=== PATIENT | male | born 1950 | race Caucasian/White ===

== ENCOUNTER 2019-02-06 07:05 | Observation (INO) ==
[2019-02-06] MEDS ORDERED: NS 1,000 ML ONE (07:15)
--- NOTE | 2019-02-06 07:21 | PROVIDER DOCUMENTATION ---
HPI-Chest Pain - General Stated Complaint: cp Time Seen by Provider: 02/06/19 07:14 Source: patient Allergies/Adverse Reactions: Patient Allergies Allergy/AdvReac Type Severity Reaction Status Date / Time No Known Allergies Allergy Verified 02/06/19 07:35 Home Medications: Home Medication List Medication Instructions Recorded Confirmed Last Taken Type ATORVAstatin [Lipitor] 20 mg PO QHS 02/06/19 02/06/19 Unknown History Acetaminophen with Codeine 1 ea PO DAILY 02/06/19 02/06/19 Unknown History [Tylenol with Codeine #3] Cyanocobalamin (Vitamin B-12) 5,000 mcg PO DAILY 02/06/19 02/06/19 Unknown History [Vitamin B12] Ezetimibe [Zetia] 10 mg PO DAILY 02/06/19 02/06/19 Unknown History Gabapentin [Neurontin] 300 mg PO TID 02/06/19 02/06/19 Unknown History Levothyroxine [Synthroid] 137 microgm PO DAILY 02/06/19 02/06/19 Unknown History Multivit,Th Iron,Other Min 1 ea PO DAILY 02/06/19 02/06/19 Unknown History [Complete Multivitamin] Potassium Chloride [Klor-Con 10] 10 meq PO DAILY 02/06/19 02/06/19 Unknown History Prednisone 20 mg PO DAILY 02/06/19 02/06/19 Unknown History - History of Present Illness-CP Nature of Presenting Problem: Patient presents via ambulance complaineng of chest pain which started approx. 1 hour ago. He took 2 nitroglycerins at home and had some reilief, but it retur noel so he called 911. the pain is in his left upper chest with radiation to his left arm. He has nausia and diaphoresis. He was given asa in route. the pain is better, but still present 04/05. He has a pacemaker, but denies any vascular disease. his sewing techniques demonstrator is Dr Graham in [place]. He drank all day yesterday. He states he doesn't know how much Location: reports: substernal Chest Pain Radiation: reports: arms, neck, shoulders Quality of Pain: reports: fullness Onset/Duration: abrupt, 1 hour ago Timing: still present Context/Activities at Onset: reports: none Modifying Factors: improves with: nothing Associated Symptoms: reports: diaphoresis, fever/chills, nausea, shortness of breath Nitro Today/Relief: 0.4 mg x 2 Aspirin Treatment Today: no aspirin today, provided by EMS Prior Chest Pain/Cardiac Workup: reports: no prior chest pain (sewing techniques demonstrator is in [place]) Similar Symptoms Previously?: No Recently Seen Here or By Another Healthcare Provider: No Review of Systems - Adult - REVIEW OF SYSTEMS - ADULT Constitutional: reports: no symptoms reported Eyes: reports: no symptoms reported Ears, Nose, Mouth & Throat: reports: no symptoms reported Cardiovascular: reports: see HPI Respiratory: reports: see HPI Gastrointestinal: reports: see HPI Genitourinary: reports: no symptoms reported Musculoskeletal: reports: see HPI Integumentary: reports: no symptoms reported Psychiatric: reports: no symptoms reported Endocrine: reports: no symptoms reported Hematologic/Lymphatic: reports: no symptoms reported Allergic/Immunologic: reports: no symptoms reported Past History - Adult - PAST MEDICAL HISTORY-ADULT Review of Records: reports: Old Records Reviewed, Nursing Assessment Review, Medications Reviewed Physical Exam-General - PHYSICAL EXAM-ADULT Initial Vital Signs Reviewed: Yes - CONSTITUTIONAL General Appearance: alert, mild distress - EYES Eyes: PERRL/EOMI - HEAD, EARS, NOSE, MOUTH & THROAT HENMT: normocephalic/atraumatic, moist mucous membranes, TMs normal, pharynx normal - NECK Neck: non-tender, full range of motion, supple, normal inspection - CARDIOVASCULAR Cardiovascular: normal peripheral pulses, regular rate, rhythm, no edema, no gallop - GASTROINTESTINAL (ABDOMEN) Abdominal Exam: normal bowel sounds, non tender, soft, no organomegaly - LYMPHATIC Lymphatic: no adenopathy - MUSCULOSKELETAL Back Exam: normal inspection, no CVA tenderness, no vertebral tenderness Extremity: normal range of motion, non-tender Peripheral Pulses: radial (R): 1+, radial (L): 1+ - SKIN Integumentary: normal color, normal turgor, warm/dry - NEUROLOGIC Neurologic: steel barrel reamer II-XII nml as tested, grossly normal - PSYCHIATRIC Psych/Mental Status: normal mood/affect Progress - PLAN OF CARE/RESULTS Progress/Plan/Lab Results: Vital Signs - 8 hr 02/06/19 07:22 02/06/19 09:01 Temperature 98.0 F Pulse Rate 75 75 Respiratory Rate 18 18 Blood Pressure 105/82 115/69 O2 Sat by Pulse Oximetry 99 97 Laboratory Results - last 24 hr 02/06/19 02/06/19 02/06/19 07:15 07:15 07:15 WBC 9.31 RBC 3.98 L Hgb 13.2 L Hct 39.1 L MCV 98.2 MCH 33.2 H MCHC 33.8 RDW Std Deviation 14.6 H Plt Count 204 MPV 11.1 H Immature Gran % (Auto) 0.2 Neut % (Auto) 49.3 Lymph % (Auto) 37.9 Cowley % (Auto) 9.1 Eos % (Auto) 2.9 Baso % (Auto) 0.6 Immature Gran # (Auto) 0.02 Neut # (Auto) 4.58 Lymph # (Auto) 3.53 H Cowley # (Auto) 0.85 H Eos # (Auto) 0.27 Baso # (Auto) 0.06 PT INR PTT (Actin FS) Sodium 142 Potassium 4.2 Chloride 106 Carbon Dioxide 21 L Anion Gap 15 BUN 11 Creatinine 1.3 H Estimated GFR/1.73 m2 55 BUN/Creatinine Ratio 8 Glucose 88 Calculated Osmolality 282 Calcium 8.6 L Total Bilirubin 0.86 AST 56 H ALT 24 Alkaline Phosphatase 129 H Creatine Kinase 926 H Creatine Kinase Index 1.1 CK-MB (CK-2) 10.56 H Troponin T < 0.010 Total Protein 7.2 Albumin 4.3 Globulin 2.9 Albumin/Globulin Ratio 1.5 Plasma/Serum Ethyl Alc 02/06/19 02/06/19 07:15 07:15 WBC RBC Hgb Hct MCV MCH MCHC RDW Std Deviation Plt Count MPV Immature Gran % (Auto) Neut % (Auto) Lymph % (Auto) Cowley % (Auto) Eos % (Auto) Baso % (Auto) Immature Gran # (Auto) Neut # (Auto) Lymph # (Auto) Cowley # (Auto) Eos # (Auto) Baso # (Auto) PT 14.7 INR 1.06 PTT (Actin FS) 31.8 Sodium Potassium Chloride Carbon Dioxide Anion Gap BUN Creatinine Estimated GFR/1.73 m2 BUN/Creatinine Ratio Glucose Calculated Osmolality Calcium Total Bilirubin AST ALT Alkaline Phosphatase Creatine Kinase Creatine Kinase Index CK-MB (CK-2) Troponin T Total Protein Albumin Globulin Albumin/Globulin Ratio Plasma/Serum Ethyl Alc 39 H Orders Category Date Time Status CHEST-PORTABLE [RAD] Stat Exams 02/06/19 07:15 Completed ALCOHOL BLOOD Stat Lab 02/06/19 07:15 Completed CBC WITH ELECTRONIC DIFF [HEME] Stat Lab 02/06/19 07:15 Completed CK PROFILE [SP CHEM] Stat Lab 02/06/19 07:15 Completed COMPREHENSIVE METABOLIC PANEL [CHEM] Stat Lab 02/06/19 07:15 Completed PROTIME WITH INR [COAG] Stat Lab 02/06/19 07:15 Completed PTT [COAG] Stat Lab 02/06/19 07:15 Completed TROPONIN T Stat Lab 02/06/19 07:15 Completed 0.9% Sodium Chloride Inj [Ns] 1,000 ml Med 02/06/19 07:15 Discontinued .ROUTE As directed Heparin Med 02/06/19 09:26 Discontinued 5,000 unit IV NOW ONE Heparin 25,000 Units/D5w Med 02/06/19 09:30 Active 25,000 unit in 250 ml IV 12 unit/kg/hr Morphine Med 02/06/19 09:12 Discontinued 4 mg IV NOW ONE EKG [EKG] Stat Ther 02/06/19 07:14 Ordered Result Diagrams: 02/06/19 07:15 02/06/19 07:15 - EKG 2 Time of EKG reading by physician:: 09:29 EKG Read and Signed by:: Familia Tellez EKG Interpretation (*Must complete 3 of following elements*): Abnormal Rate: 75 Rhythm: paced QRS: RBB ST Wave: normal - CONSULTS/PCP/HOSPITALIST Notification #1 *Consult/PCP/Hospitalist*: Dr Braun Time Discussed: 09:37 Reason/Comments: Discussed case. cpk possibly elevated 2nd to etoh. rec admit. for serial en #2 Consult: Dr. Beltran Time Discussed: 09:40 (will admit) Departure - Departure Date of Disposition Decision: 02/06/19 Time of Disposition Decision: 09:43 DIAGNOSIS: Chest pain Disposition: ADMITTED INPATIENT 09 Certified Medical Emergency: Emergent Condition: Fair Referrals and Follow-Ups: None,PCP [Primary Care Provider] - - Critical Care Note This patient required my direct & personal management of CC.: Yes Total Time (mins): 37 Critical Care Statement: This patient required my direct personal management to treat or rule out processes, the absence of which, could potentiallly result in sudden, clinically significant life or limb threatening deterioration. Attestation - Physician/ EDE Attestation Patient care was provided by Advanced Practice Provider:: No The physician spent face to face time with patient:: Yes Advanced Practice Provider documentation review:: Supervising physician onsite and consulted in the evaluation and care of this patient. The physician did have a face to face encounter with the patient.
[2019-02-06 07:40] LABS: BASO# 0.06 X1000 (0.0-0.2); BASO% 0.6 % (0.0-0.8); EOS# 0.27 X1000 (0.0-0.7); EOS% 2.9 % (0.0-10.0); HEMATOCRIT 39.1 % (42.0-52.0); HEMOGLOBIN 13.2 g/dL (14.0-18.0); IMM GRAN# 0.02 X1000 (0.0-0.04); IMM GRAN% 0.2 % (0.0-0.5); LYMPH# 3.53 X1000 (1.2-3.4); LYMPH% 37.9 % (20.5-51.1); MCH 33.2 PG (27-31); MCHC 33.8 g/dL (33-37); MCV 98.2 FL (81-99); MONO# 0.85 X1000 (0.11-0.59); MONO% 9.1 % (1.7-9.3); MPV 11.1 FL (7.4-10.4); NEUT# 4.58 X1000 (1.4-6.5); NEUT% 49.3 % (42.2-75.2); PLT 204 X1000 (130-400); RBC 3.98 XMIL (4.7-6.1); RDW 14.6 % (11.5-14.5); WBC 9.31 X1000 (4.8-10.8)
--- NOTE | 2019-02-06 07:47 | Diag Imaging Result Doc PS360 ---
EXAM: CHEST-PORTABLE 02/06/2019 HISTORY: chest pain TECHNIQUE: AP portable at 0726 COMMENT: There are no previous studies. There is some minimal subsegmental atelectasis in the left lower lobe. The heart size and primary vascularity are within normal limits. There is a pacemaker on the left. IMPRESSION: Minimal left lower lobe atelectasis. Electronically signed by Anam Crooks 02/06/2019 7:45 AM
[2019-02-06 07:54] LABS: INR 1.06; PROTIME 14.7 Seconds (11.0-16.0)
[2019-02-06 07:55] LABS: PTT 31.8 Seconds (22.3-41.8)
[2019-02-06 08:14] LABS: ALB/GLOB RATIO 1.5; ALBUMIN 4.3 g/dL (3.5-5.0); CALCIUM 8.6 mg/dL (8.8-10.2); CREATININE 1.3 mg/dL (0.7-1.2); POTASSIUM 4.2 mmol/L (3.5-5.1); TOTAL BILIRUBIN 0.86 mg/dL (0.20-1.00); TOTAL PROTEIN 7.2 g/dL (6.3-8.3)
[2019-02-06 08:50] LABS: CK INDEX 1.1 (0.0-2.5); CK-MB 10.56 ng/mL (0.0-5.0)
[2019-02-06] MEDS ORDERED: MORPHINE IV ONE (09:12)
[2019-02-06] MEDS ORDERED: HEPARIN IV ONE (09:26)
[2019-02-06] MEDS ORDERED: HEPARIN 25,000 UNITS/D5W 25,000 UNIT/250 ML IV.SOLN IV SCH ×2 (09:30→20:20)
[2019-02-06] MEDS ORDERED: TYLENOL PO PRN (10:30)
[2019-02-06 12:17] LABS: AMYLASE 26 U/L (20-200); LIPASE 24 U/L (13-60)
[2019-02-06] MEDS: NS 1,000 ML IV SCH (13:00)
[2019-02-06 14:50] LABS: FREE T4 0.78 ng/dL (0.93-1.70); T4 5.57 ug/dL (4.60-12.00)
[2019-02-06] MEDS: NEURONTIN PO SCH ×2 (16:30→19:41)
[2019-02-06 17:11] LABS: CALCIUM 7.9 mg/dL (8.8-10.2); CREATININE 1.2 mg/dL (0.7-1.2); POTASSIUM 3.9 mmol/L (3.5-5.1)
--- NOTE | 2019-02-06 18:24 | CARDIOLOGY CONSULTATION ---
DATE: 02/06/2019 REQUESTING PHYSICIAN: The hospitalist service. REASON FOR CONSULTATION: Chest pain. Evaluate. Coronary heart disease suspected. HISTORY OF PRESENT ILLNESS: Mr. Plata is a pleasant 68-year-old male who was visiting his girlfriend who lives here in [place]. He lives in [place], [place]. The patient was awakened at about 4:00 in the morning with severe intense substernal chest pain. He has not experienced that pain before. It went on for an hour or so. He came to the emergency room at about 7 a.m. and they evaluated him. They checked a CPK that was elevated; however, the index is 1.1% which is low. The troponin level was checked one time and is negative. His electrocardiogram shows activity of atrioventricular pacemaker. The EKG that was done subsequently at 9:26 in the morning shows atrial paced rhythm with his QRS showing no indication of significant abnormalities. The patient at this time is resting. I am seeing him at about 2:30 in the afternoon. He is chest- pain-free. PAST MEDICAL HISTORY: Positive for hypertension, hypothyroidism, hyperlipidemia. He has also suffered from syncope in the past. PAST SURGICAL HISTORY: He has had a previous pacemaker implantation. He has had also hernia repairs. He has had shoulder surgery. SOCIAL HISTORY: He is . He has 3 grownup children. He has been a smoker of 3/4 of pack per day for many years. He is retired. He used to be a boom truck driver. FAMILY HISTORY: Noncontributory. MEDICATIONS: Home medications at this time include atorvastatin 20 mg at bedtime; Zetia 10 mg daily; gabapentin 300 mg 3 times a day; levothyroxine 137 mcg daily; prednisone 20 mg daily; potassium chloride; multivitamins. REVIEW OF SYSTEMS: According to his girlfriend, who is actually my patient, he is very noncompliant with his thyroid supplements. Yesterday he was doing more physical work than usual. He was working under his truck, fixing it. He really appears to be exhausted. Lately he has been feeling more tired. For some time he lost weight for no good reason. They put him on steroids for that. That seems to have increased his appetite. He has been told that he has a gallstone, but he has chosen not to get it operated. He drinks alcohol. His alcohol level was 39 mg/dL when he came into the emergency room. His other systems are noncontributory. He does not have history of pneumonia or urinary tract infection, or any other important items. PHYSICAL EXAMINATION: Blood pressure 118/86, temperature 91 degrees, pulse 64, respirations 20. He is awake, alert, oriented, in no distress. He appears to be somewhat pale. Slightly sluggish. HEENT unremarkable. Chest: Diminished breath sounds bilaterally. Heart sounds are regular and rhythmic. I do not hear a gallop or murmur. His abdomen is nontender, soft. No masses. No hepatomegaly. He has a pacemaker on the left side. His extremities showed decreased pulses. There is no peripheral edema. Neurological: He follows commands. Moves all 4 extremities. LABORATORY DATA: Blood work of note: His TSH level is markedly elevated at 119 mIU/ml. His thyroxine is 5.57 mcg/dL. His free T4 is 0.789 mg/dL. Albumin is 4.3, BUN is 11, creatinine 1.3. PT, PTT normal. Hemoglobin 13.2, MCV is 98.2. Lipase and amylase have been checked and are negative. IMPRESSION: 1. Patient presenting with chest pains to the emergency room. Elevation of CPK, however, troponin is normal. This may be noncardiac. 2. Profound hypothyroidism. 3. History of hypertension. 4. Hyperlipidemia. 5. Tobacco user. 6. Alcohol use. 7. Status post dual-chamber pacemaker for suspected sick sinus syndrome and recurrent syncope. RECOMMENDATIONS: At this point in time, we will arrange for an echocardiogram. We will consider a stress test. According to the patient he has a leg man Dr. Graham who follows him in [place]. We may have to get records from him. If the echocardiogram and the stress test are unremarkable, he may be discharged to the care of his usual doctors. Thank you for asking us to participate in his evaluation. cc: Romero Velasquez MD
[2019-02-06] MEDS ORDERED: TYLENOL WITH CODEINE #3 PO PRN (18:48)
[2019-02-06] MEDS ORDERED: MORPHINE IV PRN (18:48)
[2019-02-06] MEDS ORDERED: LIPITOR PO SCH (21:00)
[2019-02-06] MEDS ORDERED: NS 500 ML IV ONE (21:01)
[2019-02-07 00:39] LABS: UR AMPHETAMINES QUAL NONE DETECTED (NONE DETECT); UR BARBITUATES QUAL NONE DETECTED (NONE DETECT); UR BENZODIAZEPIN QUAL NONE DETECTED (NONE DETECT); UR CANNABINOIDS QUAL NONE DETECTED (NONE DETECT); UR COCAINE QUAL NONE DETECTED (NONE DETECT); UR METHADONE QUAL NONE DETECTED (NONE DETECT); UR OPIATES QUAL PRESUMPTIVE POSITIVE (NONE DETECT); UR OXYCODONE QUAL NONE DETECTED (NONE DETECT); UR PCP QUAL NONE DETECTED (NONE DETECT)
[2019-02-07] MEDS ORDERED: HEPARIN 25,000 UNITS/D5W 25,000 UNIT/250 ML IV.SOLN IV SCH (02:53)
[2019-02-07] MEDS: NS 1,000 ML IV SCH ×2 (03:54→07:34)
[2019-02-07 06:57] LABS: BASO# 0.03 X1000 (0.0-0.2); BASO% 0.3 % (0.0-0.8); EOS# 0.15 X1000 (0.0-0.7); EOS% 1.3 % (0.0-10.0); HEMATOCRIT 35.4 % (42.0-52.0); HEMOGLOBIN 11.8 g/dL (14.0-18.0); IMM GRAN# 0.03 X1000 (0.0-0.04); IMM GRAN% 0.3 % (0.0-0.5); LYMPH# 2.65 X1000 (1.2-3.4); LYMPH% 22.5 % (20.5-51.1); MCH 33.6 PG (27-31); MCHC 33.3 g/dL (33-37); MCV 100.9 FL (81-99); MONO# 1.27 X1000 (0.11-0.59); MONO% 10.8 % (1.7-9.3); MPV 11.5 FL (7.4-10.4); NEUT# 7.67 X1000 (1.4-6.5); NEUT% 64.8 % (42.2-75.2); PLT 162 X1000 (130-400); RBC 3.51 XMIL (4.7-6.1); RDW 15.2 % (11.5-14.5)
[2019-02-07] MEDS ORDERED: SYNTHROID PO SCH (07:00)
[2019-02-07 07:18] VITALS: BP 97/68
[2019-02-07] MEDS ORDERED: NS 250 ML IV ONE ×2 (07:58→08:56)
[2019-02-07] MEDS ORDERED: ALBUMIN 25% IV ONE (07:58)
[2019-02-07] MEDS ORDERED: G.I. COCKTAIL PO ONE (08:00)
[2019-02-07 08:25] LABS: CK INDEX 4.3 (0.0-2.5); CK-MB 116.3 ng/mL (0.0-5.0)
[2019-02-07] MEDS ORDERED: ASPIRIN PO ONE (08:52)
[2019-02-07] MEDS ORDERED: THERA M PLUS PO SCH (09:00)
[2019-02-07] MEDS ORDERED: PREDNISONE PO SCH (09:00)
[2019-02-07] MEDS ORDERED: KLOR-CON PO SCH (09:00)
[2019-02-07] MEDS ORDERED: ZETIA PO SCH (09:00)
[2019-02-07] MEDS ORDERED: VITAMIN B-12 PO SCH (09:00)
[2019-02-07] MEDS ORDERED: NEO-SYNEPHRINE 50 MG in NS 250 ML IV SCH (09:00)
[2019-02-07] MEDS ORDERED: TYLENOL WITH CODEINE #3 PO SCH (09:00)
--- NOTE | 2019-02-07 10:15 | CARDIOLOGY PROGRESS NOTE ---
DATE: 02/07/2019 CHIEF COMPLAINT: Chest pain. SUBJECTIVE: Overnight, the patient's troponin levels became elevated up to 2.5. His CPK also went up to 1473. He has been on IV heparin since admission to the ER. The patient this morning woke up with significant chest pain at about, I believe, 7:00. According to the nurse who called me at close to 8:00, the pain was excruciating. EKG done at that time shows a new abnormality in the inferior leads which, in my opinion, could represent ST elevation. This may be distorted because of the patient's pacemaker and hypothyroidism. At any rate, the patient's blood pressure has dropped and is in the upper 70s and low 80s. He feels weak. His extremities are not cold. OBJECTIVE: Temperature is 98.7, pulse 73, respirations 18. He is awake, in some discomfort. HEENT is unremarkable. Chest: Symmetrical breath sounds. I do not hear rales. Heart sounds are regular and rhythmic. No gallop or murmur. Abdomen is soft. Extremities showed decreased pulses. No edema. Neurologic: Follows commands. Moves all 4 extremities. DIAGNOSTIC DATA: His PTT this morning is therapeutic. His CK went up to 2697, CK index of 4.3%, CKMB fraction 116.30 nanograms per mL. His C-reactive protein was only minimally elevated at 5.69, and his drug screen showed opiates. IMPRESSION: 1. The patient is having an acute AD-ksalsly-xnqpijshk myocardial infarction, in my opinion, involving the inferior wall. 2. History of pacemaker implantation, presumably for sick sinus syndrome and syncope. 3. Hypothyroidism. 4. Hyperlipidemia. 5. Medical noncompliance. 6. Tobacco user. RECOMMENDATIONS: At this point in time, the patient really needs to be taken to the [facility]. I have called [facility], and they are in agreement to take him today. I discussed this with the patient's girlfriend and the patient himself. They are in agreement to go. Hopefully he will respond appropriately to interventional maneuvers. The issue of his low thyroid function needs to be addressed gradually. Thank you for asking us to participate in his evaluation. cc: Romero Velasquez MD
--- NOTE | 2019-02-08 03:51 | HISTORY AND PHYSICAL ---
PRIMARY CARE PHYSICIAN: Dr. Eleno Rivera at [facility]. SOLUTION SALES SENIOR EXECUTIVE: Dr. Paxton Graham at [facility]. PRESENTING COMPLAINT: Chest tightness. HISTORY OF PRESENTING COMPLAINT: Mr. Plata is a 68-year-old male with history of dyslipidemia, gallstones and abdominal aneurysm, normally follows and also heart arrhythmias status post pacemaker. Patient normally follows up with his doctors at [facility] and [facility]. Mr. aRya came to visit a friend up here in [place] 3 days ago and I understand that he has been doing a little bit more drinking. 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 Went to sleep, woke up early this morning at about 4:30 because of extreme chest tightness with pain. The patient refers that at 4:30, he woke up already in pain. He was given nitroglycerin by this female friend and the pain subsided. He went back to sleep and at 5:30 he was waking up again because of this chest pain, chest tightness, usually retrosternal. He said at 1 point it was associated with numbness of both arms and he felt slightly woozy but did not pass out. He also noted that he felt dizzy. The patient was given another dose of nitroglycerin and was brought to the emergency department where he was initially evaluated and was found to have a blood pressure. Initial vitals, blood pressure was 106/77, pulse of 75, respiration is 23. The patient's CK, MB, and CK were slightly elevated so we were consulted for concern of coronary artery disease. PAST MEDICAL HISTORY: 1. dyslipidemia. 2. Hypothyroidism. 3. Known case of abdominal aortic aneurysm. 4. Gallstone disease. PAST SURGICAL HISTORY: 1. Right shoulder surgery x2. 2. The right knee arthroscopy. 3. Bilateral inguinal hernia repairs. FAMILY HISTORY: {positive for a son of diabetes. Brother also of diabetes mellitus. ALLERGIES: Unknown. HOME MEDICATIONS: Have been reviewed from his includin. Levothyroxine 37 mcg p.o. daily. 2. Multivitamin 1 daily. 3. Atorvastatin 20 mg p.o. at bedtime. 4. Cyanocobalamin. 5. Gabapentin 300 p.o. 3 times per day. 6. Prednisone 20 mg daily. 7. Zetia 10 mg daily. SOCIAL HISTORY: The patient smokes about half to 3/4 of a pack of cigarettes on daily basis and this has been going on for the past more than 20 years. He also drinks. He was not able to tell me how much, he said it is not often but is not on daily use but quite frequently. Denies any recreational drug use. REVIEW OF SYSTEMS: A 14 point review of system conducted with Mr. Plata. The patient denies any other symptoms except what we have in the HPI. Specifically, he denied any shortness of breath. No vomiting. No diarrhea. No abdominal pain. No headaches. PHYSICAL EXAMINATION: GENERAL: Mr. Plata is a 68-year-old male. He was in bed. He was not in any cardiopulmonary distress mucosa is pink, slightly dry. Anicteric. Acyanotic. NECK: Supple. No JVD. No carotid bruit. Head is normocephalic and atraumatic. CHEST: Respiratory system: Good air entry bilateral. No crepitations. No rhonchi. No accessory muscle use. CARDIOVASCULAR: Regular rate and rhythm. No murmurs, no rubs, no gallops. There is a pacemaker generator on the left anterior chest wall. GASTROINTESTINAL: Abdomen is soft, is nontender. Bowel sounds are present. There is no hepatosplenomegaly. EXTREMITIES: No pedal edema. Distal pulses are present. CENTRAL NERVOUS SYSTEM: Patient is awake, alert, oriented x4. Executive functions are intact. Motor is 5/5 in all extremities. Sensation is intact. Cranial nerves 2-12 have been grossly examined and they are unremarkable. PHYSIATRIC: Patient is very cooperative and has good understanding and judgment. LABORATORY DATA: WBC is 9.31, hemoglobin is 13.2, platelet count of 204,000. Chemistry is also reviewed. Creatinine is 1.3. There is no baseline to compare. AST is 56. Troponin is negative. DIAGNOSTIC DATA: 1. His a chest x-ray shows minimal left lower lobe atelectasis, but no consolidations. 2. EKG shows an atrial paced rhythm. 3. No ST-segment or T-waves abnormalities. Mr. Plata 68-year-old male who came to the emergency department because of chest tightness. EKG has been unremarkable. Troponin is unremarkable. However, the CK part is relatively elevated. He looks dehydrated and I think this is all related to some myositis. ASSESSMENT: 1. Atypical chest discomfort with unremarkable EKGs and initial troponin. We are going to repeat a troponin later today and trend it accordingly. I understand cardiology has been consulted and I will wait for their further recommendations. 2. Myositis. CK is slightly elevated. I think it is a combination of the fact that the patient is on statin medication and possibly over exertion yesterday from excessive physical activity on top of the fact that he could have drank a little bit more than his usual. We will hydrate him and repeat his CK later on today. If the trend is going down, he will be safe to be discharged. 3. Renal failure. Chronicity and etiology is unclear. Presume it is probably related to the current volume depletion. We are going to hydrate him. Repeat his BMP also later on today. 4. Clinical volume depletion noted will. Continue as dictated above. 5. History of hypothyroidism. Patient is on levothyroxine. We will continue with his home medications. 6. Chronic steroid use. I am not really sure why he is on that. I am told that he takes it because it makes him put on weight and a couple years back he was extremely thin, and his doctor made a choice to put him on that. I am not sure if he has an underlying adrenal insufficiency, but we will going to continue with his home medication as he normally takes. 7. History of cardiac arrhythmia status post pacemaker. The pacemaker seems to be doing pretty well. Cardiology has been consulted. PLAN: So, in general, I think Mr. Plata is doing fairly okay. We are going to hydrate him and observe him in the next 4 to 6 hours, repeat his labs and an EKG. If his if labs are showing better and his troponin is negative, I think he will be safe to be discharged for him to follow up with his regular doctors at [facility] and [facility]. I have communicated my plan and findings to Mr. Plata and his female partner at the bedside, and they are all in agreement with the plan. cc: Matt Pandey MD
--- NOTE | 2019-02-08 07:08 | EKG Report ---
Test Performed on : 02/07/2019 07:55:09 AM Test Reason : CP Blood Pressure : / mmHG Vent. Rate : 076 BPM Atrial Rate : 076 BPM P-R Int : 254 ms QRS Dur : 116 ms QT Int : 378 ms P-R-T Axes : -35 -38 -17 degrees QTc Int : 425 ms Atrial-paced rhythm with prolonged AV conduction Left axis deviation Right bundle branch block Abnormal ECG When compared with ECG of 07-FEB-2019 06:16, (Unconfirmed) Criteria for Septal infarct are no longer present Confirmed by Girma KWOK, Rocco ([id number]) on 02/08/2019 8:56:12 AM
--- NOTE | 2019-02-08 07:11 | EKG Report ---
Test Performed on : 02/07/2019 06:16:33 AM Test Reason : NSTEMI Blood Pressure : / mmHG Vent. Rate : 076 BPM Atrial Rate : 076 BPM P-R Int : 264 ms QRS Dur : 114 ms QT Int : 400 ms P-R-T Axes : 000 -37 002 degrees QTc Int : 450 ms Atrial-paced rhythm with prolonged AV conduction Left axis deviation Low voltage QRS Incomplete right bundle branch block Septal infarct (cited on or before 06-FEB-2019) Abnormal ECG When compared with ECG of 06-FEB-2019 09:26, (Unconfirmed) Questionable change in initial forces of Septal leads T wave inversion now evident in Inferior leads Confirmed by Girma KWOK, Rocco ([id number]) on 02/08/2019 8:55:34 AM
--- NOTE | 2019-02-08 09:32 | EKG Report ---
Test Performed on : 02/06/2019 07:05:56 AM Test Reason : chest pain Blood Pressure : / mmHG Vent. Rate : 088 BPM Atrial Rate : 088 BPM P-R Int : 000 ms QRS Dur : 182 ms QT Int : 484 ms P-R-T Axes : 000 268 094 degrees QTc Int : 585 ms AV dual-paced rhythm Abnormal ECG No previous ECGs available Unconfirmed Result
--- NOTE | 2019-02-08 09:35 | EKG Report ---
Test Performed on : 02/06/2019 09:26:00 AM Test Reason : chest pain Blood Pressure : / mmHG Vent. Rate : 075 BPM Atrial Rate : 075 BPM P-R Int : 260 ms QRS Dur : 106 ms QT Int : 422 ms P-R-T Axes : -24 003 071 degrees QTc Int : 471 ms Atrial-paced rhythm with prolonged AV conduction Incomplete right bundle branch block Septal infarct , age undetermined Abnormal ECG When compared with ECG of 06-FEB-2019 07:05, (Unconfirmed) Electronic atrial pacemaker has replaced Electronic ventricular pacemaker Unconfirmed Result
--- NOTE | 2019-02-22 08:32 | DISCHARGE SUMMARY ---
ADMISSION DATE: 02/06/2019 DISCHARGE DATE: 02/07/2019 PRINCIPAL DIAGNOSIS: Acute ST-elevation myocardial infarction. SECONDARY DIAGNOSES: 1. History of pacemaker implantation. 2. Hypothyroidism. 3. Hyperlipidemia. 4. Medical noncompliance. 5. Tobacco use. 6. History of abdominal aortic aneurysm. 7. History of gallbladder disease. 8. History of chronic steroid use. DISCHARGE MEDICATIONS: Levothyroxine 137 mcg p.o. daily, multivitamin 1 p.o. daily, atorvastatin 20 mg p.o. daily, vitamin B12 5000 mcg p.o. daily, Neurontin 300 mg p.o. 2 times a day, potassium chloride 10 mEq p.o. daily, prednisone 20 mg p.o. once a day, acetaminophen with codeine 1 every 4 hours p.r.n., Zetia 10 mg p.o. once a day. HOSPITAL COURSE: Mr. Familia Plata is a 69-year-old male who has a history of dyslipidemia and gallstones, abdominal aortic aneurysm, and was admitted to the hospital with chest pain. The patient was noted to have acute MA .He was seen by Cardiology Team on 02/07/2019, and a decision was made to have the patient transferred over to [facility] to have a cardiac cath with, possible intervention. The patient was subsequently transferred accordingly. cc: dEward Alaniz MD MTDElvira
== END 2019-02-07 09:30 | disposition short-term general hospital (02) ==
LOC: ED 07:05 → 4N 07:05 → SUATTDRO 11:21 → 3S 02-07 07:17
PROVIDERS: ATTEND Internal Medicine
CPT/HCPCS: 71010; 71045; 80048; 80053; 80101; 80301; 80307; 80320; 80324; 80345; 80346; 80353; 80358; 80361; 80365; 82055; 82150; 82550; 82553; 83690; 83992; 84436; 84439; 84443; 84481; 84484; 85025; 85610; 85651; 85730; 86140; 93005; 93010; 93306; 96365; 96375; 99285; A9270; G0431; G0434; G0479; G0480; G6040; J1644; J2270; J2370; J7030; J7040; J7050; P9047